=== PATIENT | male | born 1945 | race Asian ===

== ENCOUNTER 2025-11-04 07:00 | Day surgery (SDC) | payer MEDICARE, BC, SELFPAY ==
--- NOTE | 2025-10-31 11:25 | EKG_ITS ---
[facility] Test Date: 2025-10-31 Pat Name: WANDA REYNA Department: Room: - Gender: Male Staff Trainer: ROULA : 1945 Requested By: Catarino Hart Order Number: [id number] Reading MD: Catarino Hart Measurements Intervals Protem Rate: 87 P: 50 CA: 201 QRS: 80 QRSD: 102 T: 6 QT: 363 QTc: 439 Interpretive Statements SINUS RHYTHM POSSIBLE INFERIOR MYOCARDIAL INFARCTION , PROBABLY OLD [30 ms Q WAVE IN II/aVF] No previous ECG available for comparison [id number]
[2025-10-31 12:28] LABS: Alanine Aminotransferase 68 U/L (10-49); Albumin, Serum 4.9 gm/dL (3.4-4.8); Albumin/Globulin Ratio 1.6 (1.2-2.2); Alkaline Phosphatase 87 U/L (46-116); Anion Gap 11 (7-16); Aspartate Amino Transferase 71 U/L (0-34); BUN/Creatinine Ratio 22 Ratio (12-20); Bilirubin,Total 1.2 mg/dL (0.3-1.2); Blood Urea Nitrogen 22 mg/dL (9-23); Calcium 9.7 mg/dL (8.3-10.6); Calcium (Corrected) 9.7 mg/dL (8.5-10.1); Carbon Dioxide 26.2 mMol/L (20.0-31.0); Chloride 106 mMol/L (98-107); Creatinine (Component) 1.0 mg/dL (0.6-1.3); Globulin 3.0 gm/dL (2.3-3.5); Glucose 144 mg/dL (74-106); Osmolality,Calculated 291 (275-295); Potassium 4.0 mMol/L (3.4-5.1); Sodium 143 mMol/L (136-145); Total Protein 7.9 gm/dL (5.7-8.2); eGFR > 60 See Note
[2025-11-01 12:45] VITALS: BMI 30.2
[2025-11-04 07:39] VITALS: BP 164/90; PULSE 83; RESP 18; TEMP 36.2; O2SAT 96; BMI 30.4
[2025-11-04] MEDS: RINGERS LACTATED 500 ML 500 ML 125 ML IV (09:21)
[2025-11-04 09:35] VITALS: BP 105/70; PULSE 74; RESP 20; TEMP 36.6; O2SAT 98
[2025-11-04 09:45] VITALS: BP 113/67; PULSE 66; RESP 16; O2SAT 97
[2025-11-04 09:55] VITALS: BP 119/70; PULSE 71; RESP 19; O2SAT 98
[2025-11-04 10:05] VITALS: BP 126/72; PULSE 70; RESP 20; TEMP 36.6
--- NOTE | 2025-11-04 10:10 | SUR.PHASEII ---
1000 Pt more awake and alert. Denies pain or N/V. Abd remains slightly firm-pt states normal size. Grady PO fluids.
== END 2025-11-04 10:20 | disposition home or self-care (01) ==
PROVIDERS: Anesthesiology; PCP Internal Medicine; Referring Provider Specialist; Visit Provider Specialist
PROC: 0DBE8ZX Excision of Large Intestine, Via Natural or Artificial Opening Endoscopic, Diagnostic (ICD-10-PCS; CPT 45380; principal; 2025-11-04 08:00)
DX: Z12.11 Encounter for screening for malignant neoplasm of colon (principal); K64.1 Second degree hemorrhoids; K57.30 Diverticulosis of large intestine without perforation or abscess without bleeding; Z01.810 Encounter for preprocedural cardiovascular examination
CPT/HCPCS: G0121; 36415; 80053; 93005; A4649; J7120